=== PATIENT | female | born 1995 | race Caucasian/White ===

== ENCOUNTER 2018-03-02 21:55 | Emergency (ER) | payer MEDICAID, OTHER ==
[~2018-03-02] VITALS: Ht 142.2 cm; Wt 48.1 kg
[2018-03-02 22:13] VITALS: BP 151/66
--- NOTE | 2018-03-02 22:35 | NUR ---
PATIENT PRESENTS TO ED WITH SUPRAPUBIC TENDERNESS WITH BURNING WITH URINATION. PT STATES 3 DAYS AGO PT HAD PAINFUL LUMP ON RIGH SIDE OF GENITALIA BUT NOW HAS LUMP ON BOTH SIDES. DENIES N/V/D; SKIN IS PINK/WARM/DRY; AAOX4 WITH EVEN AND STEADY GAIT; LUNGS CLEAR BL; HR EVEN AND REGULAR; PT DENIES ANY FEVER, CP, SOB, OR COUGH AT THIS TIME; PATIENT STATES PAIN OF 8/10 AT THIS TIME; VSS; PATIENT POSITIONED FOR COMFORT; HOB ELEVATED; BEDRAILS UP X2; BED DOWN. ER MD MADE AWARE OF PT STATUS. CONTINUE TO MONITOR.
--- NOTE | 2018-03-02 22:35 | NUR ---
PT AMBULATED TO ER BED 08
--- NOTE | 2018-03-02 22:43 | NUR ---
PT AMB TO [facility] WITH [facility]
--- NOTE | 2018-03-03 00:15 | NUR ---
AWAITING DISCHARGE DISPOSITION FROM DR PATEL.
[2018-03-03 00:57] VITALS: BP 151/66
--- NOTE | 2018-03-03 00:57 | NUR ---
Patient discharged with v/s stable. Written and verbal after care instructions given and explained. Patient alert, oriented and verbalized understanding of instructions. Ambulatory with steady gait. All questions addressed prior to discharge. ID band removed. Patient advised to follow up with PMD. Rx of Nitrofurantoin, Difulcan, and Ibuprofen given. Patient educated on indication of medication including possible reaction and side effects. Opportunity to ask questions provided and answered.
== END 2018-03-03 00:57 | disposition home or self-care (01) ==
LOC: MED 21:55
DX: R59.0 Localized enlarged lymph nodes (principal); B37.3 Candidiasis of vulva and vagina; N39.0 Urinary tract infection, site not specified; F17.210 Nicotine dependence, cigarettes, uncomplicated
CPT/HCPCS: 81002; 81025; 99283